=== PATIENT | male | born 1980 | race Caucasian/White ===

== ENCOUNTER 2019-01-09 11:23 | Emergency (ER) | payer BC ==
[2019-01-09 11:30] VITALS: BP 139/83; PULSE 71; TEMP 99; BMI 29.5
--- NOTE | 2019-01-09 11:56 | PDOC ---
History of Present Illness - General Chief Complaint: Ear Problem Stated Complaint: LT. EAR PAIN Time Seen by Provider: 01/09/19 11:36 History Source: Patient Exam Limitations: Clinical Condition - History of Present Illness Initial Comments: 01/09/19 11:41 Patient with no past medical history present with complaint of three-day history of left ear pain with feeling of fluid in left ear. Denies fever, chills , sore throat, headache, nausea or vomiting. Denies any other symptoms Timing/Duration: other (3 days) Past History - Past Medical History Allergies/Adverse Reactions: Allergies Allergy/AdvReac Type Severity Reaction Status Date / Time No Known Allergies Allergy Verified 01/09/19 11:27 Home Medications: Ambulatory Orders Neomycin/Polymyxin B/Hydrocort [Gznbvzwz-Qyxmfhnzu-Nq Ear Susp] 4 drop OT Q6H 5 Days #1 bottle 01/09/19 - Suicide/Smoking/Psychosocial Hx Smoking History: Never smoked Review of Systems - Review of Systems Able to Perform ROS?: Yes Is the patient limited Ivorian proficient: No Constitutional: No: Chills, Fever, Malaise HEENTM: Yes: Symptoms Reported, See HPI, Ear Pain (left ear). No: Eye Pain, Blurred Vision, Tearing, Recent change in vision, Double Vision, Cataracts, Ocular Prothesis, Ear Discharge, Nose Pain, Nose Congestion, Tinnitus, Nose Bleeding, Hearing Loss, Throat Pain, Throat Swelling, Mouth Pain, Dental Problems, Difficulty Swallowing, Mouth Swelling, Other Respiratory: No: Symptoms reported, See HPI, Cough, Orthopnea, Shortness of Breath, SOB with Exertion, SOB at Rest, Stridor, Wheezing, Productive cough, Hemoptysis, Other Cardiac (ROS): No: Symptoms Reported ABD/GI: No: Nausea, Vomiting All Other Systems: Reviewed and Negative *Physical Exam - Vital Signs Last Vital Signs Temp Pulse Resp BP Pulse Ox 99 F 71 16 139/83 99 01/09/19 11:25 01/09/19 11:25 01/09/19 11:25 01/09/19 11:25 01/09/19 11:25 - Physical Exam Comments: 01/09/19 11:57 GENERAL: Well developed, well nourished. Awake and alert. No acute distress. HEENT: Mild erythema in left ear canal with moderate fluid in left ear canal. Mild cerumen in right ear canal. Tympanic membrane normal bilateral. Normocephalic, atraumatic. PERRLA, EOMI. No conjunctival pallor. Sclera are non- icteric. Moist mucous membranes. Oropharynx is clear. NECK: Supple. Full ROM. CARDIOVASCULAR: Regular rate and rhythm. No murmurs, rubs, or gallops. Distal pulses are 2+ and symmetric. PULMONARY: No evidence of respiratory distress. Lungs clear to auscultation bilaterally. No wheezing, rales or rhonchi. ABDOMINAL: Soft. Non-tender. Non-distended. No rebound or guarding. No organomegaly. Normoactive bowel sounds. MUSCULOSKELETAL Normal range of motion at all joints. SKIN: Warm and dry. Normal capillary refill. No rashes. NEUROLOGICAL: Alert, awake, appropriate. Gait is normal without ataxia. PSYCHIATRIC: Cooperative. Good eye contact. Appropriate mood General Appearance: Yes: Nourished, Appropriately Dressed. No: Apparent Distress Medical Decision Making - Medical Decision Making 01/09/19 11:42 Patient with no past medical history present with complaint of three-day history of left ear pain with feeling of fluid in left ear. Denies fever, chills , sore throat, headache, nausea or vomiting. Denies any other symptoms Exam significant for moderate fluid in left ear canal with mild external ear canal erythema. Right ear canal normal. Tympanic membrane normal. Patient afebrile. Patient is stable for discharge on neomycin with polymycin ear drops for otitis externa with ENT follow-up as needed *DC/Admit/Observation/Transfer Diagnosis at time of Disposition: Left otitis externa Qualifiers: Otitis externa type: swimmer's ear Chronicity: acute Qualified Code(s): H60.332 - Swimmer's ear, left ear - Discharge Dispostion Disposition: HOME Condition at time of disposition: Stable Decision to Admit order: No - Prescriptions Prescriptions: Neomycin/Polymyxin B/Hydrocort [Zgmngmgy-Xxtpnnhaz-Tk Ear Susp] 4 drop OT Q6H 5 Days #1 bottle - Referrals Referrals: Reuben Newsome MD [Staff Physician] - - Patient Instructions Printed Discharge Instructions: DI for Otitis Externa Additional Instructions: Use ear drops as prescribed. Follow-up with referred ENT if no improvement in 4 days Print Language: PORTUGUESE - Post Discharge Activity
== END 2019-01-09 12:05 | disposition home or self-care (01) ==
LOC: JERFT 11:23
DX: H60.332 Swimmer's ear, left ear (principal)
CPT/HCPCS: 99281-25

== ENCOUNTER 2020-05-11 10:16 | Emergency (ER) | payer BC ==
[2020-05-11 10:26] VITALS: BP 143/82; PULSE 77; TEMP 98; BMI 30.3
[2020-05-11] MEDS ORDERED: KETOROLAC TROMETHAMINE 60 MG/2 ML VIAL IM ONE (10:39)
[2020-05-11] MEDS ORDERED: KETOROLAC TROMETHAMINE 60 MG/2 ML VIAL ONE (10:52)
== END 2020-05-11 11:26 | disposition home or self-care (01) ==
LOC: JER 10:16
PROC: 3E0233Z Introduction of Anti-inflammatory into Muscle, Percutaneous Approach (ICD-10-PCS; principal; 2020-05-11)
DX: R07.89 Other chest pain (principal)
CPT/HCPCS: 93005; 93010; 99284-25